=== PATIENT | male | born 1955 | race Caucasian/White ===

== ENCOUNTER 2024-05-22 15:02 | Emergency (ER) | payer MEDICARE, SELFPAY ==
--- NOTE | ~2024-05-22 | US_ITS ---
EXAMINATION: US venous doppler UE RT DATE: 05/22/2024 15:51 INDICATION: Right hand swelling TECHNIQUE: Grayscale images without and with compression and Doppler images of the right upper extrem ity veins were obtained. COMPARISON: None. FINDINGS: The right internal jugular vein, subclavian vein, axillary vein, brachial vein, basilic vein, cephali c vein, radial vein, and ulnar vein are patent. IMPRESSION: 1. Patent right upper extremity veins. No evidence of venous thrombosis. Reviewed, dictated and finalized at location A.
--- NOTE | ~2024-05-22 | XR_ITS ---
XR hand RT min 3V Ordering provider: Vic Lyle History: . R hand swelling X 1 DAY NO FALL NO TRAUMA . Comparison: None. FINDINGS: BONES: No acute fracture or dislocation. 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 SOFT TISSUES: Minimal soft tissue swelling in the dorsum of the hand. IMPRESSION: No acute osseous abnormality right hand. Reviewed, dictated and finalized at location A.
[2024-05-22 15:30] VITALS: BP 119/77; PULSE 77; RESP 16; TEMP 36.9; O2SAT 96
--- NOTE | 2024-05-22 15:30 | ED.EXTPRO ---
HPI - Extremity Problem General Chief complaint: Extremity Problem,Nontraumatic <Vic Lyle PA-C - Last Filed: 05/22/24 15:33> Stated complaint: RIGHT arm DVT rule-out <Vic Lyle PA-C - Last Filed: 05/22/24 15:33> Time Seen by Provider: 05/22/24 15:30 <Vic Lyle PA-C - Last Filed: 05/22/24 15:33> Focused HPI: This is a 68-year-old male who presents to the ED for chief complaint right hand swelling onset x2 days. Patient has been working outside in the [place] a lot but denies any specific injury. Reports the hand is painful throughout. He was sent over by urgent care to rule out DVT. No history of DVT. Denies fevers, chills, numbness, weakness or any further sites of pain. GENERAL: Well-appearing, well-nourished, and in no acute distress. HEAD: Normocephalic, atraumatic. CHEST: Clear to auscultation. No respiratory distress. HEART: Regular rate and rhythm. MSK: Right hand swelling present. No erythema, minimal warmth. Full range of motion. Air Tube Releaser strength is reduced due to pain. Range of motion of the wrist causes pain in multiple areas. Neurovascularly intact distally. Minimal tenderness. NEURO: Alert and oriented x3. Patient screened in triage and initial orders placed. Additional care and disposition to be based upon diagnostic testing and treatment. <Vic Lyle PA-C - Last Filed: 05/22/24 15:33> Source: patient <Vic Lyle PA-C - Last Filed: 05/22/24 15:33> Mode of arrival: ambulatory <Vic Lyle PA-C - Last Filed: 05/22/24 15:33> Limitations: no limitations <BRIGITTE Lino Last Filed: 05/22/24 15:33> History of Present Illness HPI Narrative: 68-year-old with a history of hypertension, eczema here with complaints of right wrist and hand swelling. Patient states that he has been working outside for the last couple days. He denies any trauma. Does state the swelling is going up to his wrist . He denies any fever or chills no previous history of gout. <Jose Lynn MD - Last Filed: 05/22/24 16:46> MD Complaint: extremity pain and extremity swelling <Jose Lynn MD - Last Filed: 05/22/24 16:46> Onset (ago): day(s) (2) <Jose Lynn MD - Last Filed: 05/22/24 16:46> Location: right <Jose Lynn MD - Last Filed: 05/22/24 16:46> Quality: aching <Jose Lynn MD - Last Filed: 05/22/24 16:46> Radiation: proximal <Jose Lynn MD - Last Filed: 05/22/24 16:46> Exacerbating factors: range of motion <Jose Lynn MD - Last Filed: 05/22/24 16:46> Associated symptoms: denies other symptoms <Jose Lynn MD - Last Filed: 05/22/24 16:46> Review of Systems Review of Systems: All systems reviewed & are unremarkable except as noted in HPI and below <Jose Lynn MD - Last Filed: 05/22/24 16:46> Constitutional: Constitutional: Reports no additional constitutional complaints <Jose Lynn MD - Last Filed: 05/22/24 16:46> Eyes: Eyes: Reports no additional eye complaints <Jose Lynn MD - Last Filed: 05/22/24 16:46> ENT: Reports system reviewed and no additional complaints, except as documented <Jose Lynn MD - Last Filed: 05/22/24 16:46> Cardiovascular: Cardiovascular: Reports no additional cardiovascular complaints <Jose Lynn MD - Last Filed: 05/22/24 16:46> Respiratory: Respiratory: Reports no additional respiratory complaints <Jose Lynn MD - Last Filed: 05/22/24 16:46> Gastrointestinal: Gastrointestinal: Reports no additional gastrointestinal complaints <MD Robbie Conway Last Filed: 05/22/24 16:46> Musculoskeletal: Musculoskeletal: Reports as per HPI <Jose Lynn MD - Last Filed: 05/22/24 16:46> Neurologic: Reports system reviewed and no additional complaints, except as documented <Jose Lynn MD - Last Filed: 05/22/24 16:46> Exam Narrative: GENERAL: Well-appearing, well-nourished, and in no acute distress. HEAD: Normocephalic
== END 2024-05-22 16:57 | disposition home or self-care (01) ==
PROVIDERS: Emergency Provider Family Medicine
DX: M25.531 Pain in right wrist (principal)
CPT/HCPCS: 73130; 93971; 99284